=== PATIENT | female | born 1935 | race Caucasian/White ===

== ENCOUNTER 2021-06-24 11:43 | Emergency (ER) | payer OTHER ==
[~2021-06-24] VITALS: Ht 157.5 cm; Wt 59.0 kg
--- NOTE | ~2021-06-24 | EMS ---
[address] [address] EMS Patient Care Report Name: SHARONA ROJAS Room #: DEP SAE Ramirez#: [id number] Admission: 06/24/21 Attend Phys: Discharge: 06/24/21 Date of : 37 Report #: [id number] THIS REPORT FOR: //name// Report Transmitted: 06/24/2021 19:00 EMS Care Summary [facility] MED-ACT Incident [id number] @ 06/24/2021 11:17 Incident Location [address] [place] [address] Patient SHARONA ROJAS Female, 85 Years 1935 Patient Address [address] [place] [address] Patient History Cardiac Arrythmia, Patient Allergies No known allergies, Patient Medications Eliquis, Chief Complaint unresponsive Disposition Transported No Lights/[place] Dispatch Reason Unconscious/Fainting Transported To [facility] Narrative CC: unresponsive H: [id number] dispatched to a C1 unresponsive subject at a residence. On arrival EMS met by pts family who reported the pt got up to go to the bathroom at [address] [address] EMS Patient Care Report Name: SHARONA ROJAS Room #: DEP Ashley#: [id number] Admission: 06/24/21 Attend Phys: Discharge: 06/24/21 Date of : 37 Report #: [id number] around 130 this am. They reported the pt was her normal at that time which is a GCS of 15. Family reported the pt is from out of town and was staying with them for two weeks while her room at an assisted living facility was getting ready. They reported the pt had a fall down two stairs two days ago, they denied her hitting her head or change in mentation. They reported they had a buzy day yesterday running errands and the pt was complaint free. They reported when she did not get up this am, they went to check on her and she was unresponsive. Family reported no history of this. Pt had a downward right gaze in both eyes, her skin felt hot to the touch and she had rales in her lower lobes. FD reported on their arrival the pts room air oxygen saturations were 90% so they placed her on a nasal cannula. Pt moved from the bed to the cot and taken to ambulance. While taking the pt to the ambulance she started to seize. Pt given 10mg IM versed, seizure lasted less than 2 minutes. Pt still had downward right gaze. Pt placed on ETCO2 nasal cannula. Suction attempted, small amount of clear sputum suctioned from pts right side of mouth. IV established and Code Stroke biocom to [facility]. Pt unresponsive throughout call. Pt incontinent of urine. Assessment: See narrative and assessment tab for details Treatment: Oxygen via nasal cannula, temp, surgical mask, blood glucose, 12 lead, IM Versed, Successful 20 ga IV, Suction Transport: Pt remained on 4lpm nasal cannula, 12 lead obtained. Pt remained unresponsive and vitals monitored. Downward right gaze continued. Destination: Pt transproted to [facility], closest base facility. Pt care to ED staff in room 2. Pt moved from cot to bed via sheet drag and report to ED staff. Pt left in ED care without change. Initial Vitals @11:35P: 74,MS Suspected: false @11:37P: 78,R: 20,EtCO2: 29,SpO2: 98, @11:34P: 78,R: 16,BP: 143/64,SpO2: 99,MS Suspected: false @PTAP: 80,R: 16,GCS: 3,Glucose: 111,SpO2: 90, @11:38P: 73,R: 26,BP: 132/70,GCS: 3,Revised Trauma: 8, @11:40P: 81,R: 22,BP: 130/63,GCS: 3,EtCO2: 35,SpO2: 99,Revised Trauma: 8, @11:34P: 73,GCS: 3,Temp: 98.2F, Impression Altered Mental Status Procedures @11:35 12-Lead ECG Response: UnchangedSucceeded @PTAOxygen FlowRate: 4 Device: Nasal Cannula (NC) Response: ImprovedSucceeded [facility] [address] [place] [address] EMS Patient Care Report Name: SHARONA ROJAS Room #: DEP SAE Ramirez#: [id number] Admission: 06/24/21 Attend Phys: Discharge: 06/24/21 Date of : 37 Report #: [id number] @11:31 Midazolam - 10 Milligrams (mg) - Intramuscular (IM) Response: Improved @11:34 IV Therapy - Saline Lock 20cc (20 ga) Site: Antecubital-Right Response: UnchangedSucceeded @11:34 Oxygen FlowRate: 4 Device: CO2 Nasal Cannula Response: UnchangedSucceeded Timeline [employer],Oxygen FlowRate: 4 Device: Nasal Cannula (NC) Response: ImprovedSucceeded, [employer],BP: / M,PULSE: 80,RR: 16 R,SPO2: 90 Ox,ETCO2: ,B,PAIN: ,GCS: 3, 11:15,Call Received 11:15,Psap Call 11:17,Dispatched 11:17,En Route 11:22,On Scene 11:25,At Patient 11:31,Midazolam - 10 Milligrams (mg) - Intramuscular (IM),Response: Improved 11:34,Oxygen FlowRate: 4 Device: CO2 Nasal Cannula Response: UnchangedSucceeded, 11:34,BP: / M,PULSE: 73,RR: R,SPO2: Ox,ETCO2: ,BG: ,PAIN: ,GCS: 3, 11:34,Depart Scene 11:34,IV Therapy - Saline Lock 20cc 20 ga Site: Antecubital-Right,Response: UnchangedSucceeded, 11:34,BP: 143/64 M,PULSE: 78,RR: 16 R,SPO2: 99 Ox,ETCO2: ,BG: ,PAIN: ,GCS: , 11:35,12-Lead ECG,Response: UnchangedSucceeded, 11:35,BP: / M,PULSE: 74,RR: R,SPO2: Ox,ETCO2: ,BG: ,PAIN: ,GCS: , 11:37,BP: / M,PULSE: 78,RR: 20 R,SPO2: 98 Ox,ETCO2: 29 ,BG: ,PAIN: ,GCS: , 11:38,BP: 132/70 M,PULSE: 73,RR: 26 R,SPO2: Ox,ETCO2: ,BG: ,PAIN: ,GCS: 3, 11:40,At Destination 11:40,BP: 130/63 M,PULSE: 81,RR: 22 R,SPO2: 99 Ox,ETCO2: 35 ,BG: ,PAIN: ,GCS: 3, 11:54,Call Closed Disclaimer v1.1 Copyright 2020 [employer] This EMS Care Summary contains data elements from the applicable legal record (which may be displayed differently). It is designed to provide pertinent information for the following purposes: continuity of care, clinical quality, and state data reporting. The complete legal record is available to ED staff and administrators of the receiving hospital in [employer]'s Patient Tracker. All data is provided "as is."
[2021-06-24 12:26] LABS: APTT 35.7 Seconds (24.5-32.8); INR 1.36; PROTIME 14.6 Seconds (10.5-12.1)
[2021-06-24 12:29] LABS: CALCIUM 8.2 mg/dL (8.5-10.1); CREATININE 0.7 mg/dL (0.6-1.0); POTASSIUM 4.9 mmol/L (3.5-5.1); TOTAL BILIRUBIN 1.4 mg/dL (0.2-1.0); TOTAL PROTEIN 6.4 g/dL (6.4-8.2)
[2021-06-24 12:52] LABS: URINE BILIRUBIN NEGATIVE (Negative); URINE BLOOD 3+ (Negative); URINE CLARITY CLEAR; URINE COLOR YELLOW; URINE GLUCOSE-RANDOM* NEGATIVE (Negative); URINE KETONES NEGATIVE (Negative); URINE LEUKOCYTES-REFLEX NEGATIVE (Negative); URINE NITRITE-REFLEX NEGATIVE (Negative); URINE PROTEIN (DIPSTICK) NEGATIVE (Negative); URINE SPECIFIC GRAVITY 1.015 (1.005-1.035)
[2021-06-24 13:00] LABS: BE(vivo) 1.2 mmol/L (-2 to +3); HCO3 24.4 mmol/L (22.0-26.0); PCO2 33.4 mmHg (35.0-45.0); PO2 491.5 mmHg (80.0-100.0); pH 7.482 (7.360-7.450); sO2 99.9 % (92.0-98.0)
[2021-06-24 13:49] VITALS: BP 114/45
[2021-06-24 13:58] LABS: HEMATOCRIT 27.5 % (37.0-47.0); HEMOGLOBIN 9.1 gm/dL (12.0-15.0); MCH 31.1 pg (26.0-34.0); MCHC 33.2 g/dL (28.0-37.0); MCV 93.7 fL (80.0-100.0); RBC 2.93 mil/uL (4.20-5.00); RDW 17.3 % (10.5-14.5); WBC 5.1 thou/uL (4.0-11.0)
[2021-06-24 14:13] LABS: ABSOLUTE NEUTROPHILS 4.1 thou/uL (1.4-8.2)
[2021-06-24 14:14] LABS: ANISOCYTOSIS 1+
[2021-06-24 14:17] LABS: PLATELET COUNT 88 thou/uL (150-400)
[2021-06-24 14:22] LABS: BACTERIA-REFLEX 1-9 Few /HPF (None Seen); CASTS None Seen /LPF (None Seen); CRYSTALS None Seen /LPF (None Seen); SQUAMOUS 0-3 Few /LPF (0-3); URINE WBC-REFLEX 6-15 Few /HPF (0-5)
--- NOTE | 2021-06-24 15:15 | EKG ---
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
== END 2021-06-24 13:49 | disposition short-term general hospital (02) ==
LOC: ER 11:43
PROVIDERS: Emergency Medicine
DX: I62.00 Nontraumatic subdural hemorrhage, unspecified (principal); Z20.822 Contact with and (suspected) exposure to COVID-19; I60.9 Nontraumatic subarachnoid hemorrhage, unspecified; I48.91 Unspecified atrial fibrillation